=== PATIENT | female | born 1980 | race Caucasian/White ===

== ENCOUNTER 2020-05-11 23:09 | Emergency (ER) | payer OTHER, MEDICAID ==
[~2020-05-11] VITALS: Ht 182.9 cm; Wt 255.8 kg
[~2020-05-11 23:09] MED LIST: ADULT LOW DOSE81 MG PO; BYETTA PEN 11 PENINJ SC; CERTAGEN SOL1 BO1 NG; CYMBALTA60 MG PO; FISH OIL 1,0001 EAC5 PO; GEODON40 MG PO; GEODON60 MG PO; HYDROXYZINE HCL25 M1 PO; IMODIUM A-D1 MG/5 ML PO; MAALOX525 MG/15 PO; METFORMIN 500500 MG PO; MIDRIN CAPSULE1 CAP PO; NOVOLOG100 UNIT/1 SQ; SENNA CONCENTR8.6 MG PO; SIMVASTATIN20 MG PO; SINGULAIR 10 MG10 M1 PO; TOPAMAX100 MG PO; TRILEPTAL 300300 MG PO; VISTARIL 25 MG25 M1 PO; ZANTAC 150MG T150 M1 PO
[2020-05-11] MEDS ORDERED: ADVAIR 250-501 EACH INH (23:17)
[2020-05-11] MEDS ORDERED: BUSPIRONE HCL15 MG PO (23:18)
[2020-05-11] MEDS ORDERED: LANTUS100 UNIT/M SUBQ (23:18)
[2020-05-11] MEDS ORDERED: PRAZOSIN HCL5 MG PO (23:18)
[2020-05-11] MEDS ORDERED: GABAPENTIN600 M1 PO (23:19)
[2020-05-11] MEDS ORDERED: PROTONIX40 M2 PO (23:19)
[2020-05-11] MEDS ORDERED: TRULICITY4.5 MG/0.5 SUBQ (23:19)
[2020-05-11] MEDS ORDERED: KAPSPARGO SPRIN25 MG PO (23:20)
[2020-05-11] MEDS ORDERED: LATUDA80 MG PO (23:22)
[2020-05-12 00:12] VITALS: BP 158/72
== END 2020-05-12 00:12 | disposition home or self-care (01) ==
LOC: M.ERS 23:09
DX: S42.292A Other displaced fracture of upper end of left humerus, initial encounter for closed fracture (principal); E11.9 Type 2 diabetes mellitus without complications; J45.909 Unspecified asthma, uncomplicated; E66.9 Obesity, unspecified; Z68.45 Body mass index [BMI] 70 or greater, adult; Z87.440 Personal history of urinary (tract) infections; Z90.49 Acquired absence of other specified parts of digestive tract; Z79.4 Long term (current) use of insulin; Z88.1 Allergy status to other antibiotic agents; Z88.0 Allergy status to penicillin; Z88.5 Allergy status to narcotic agent; Z88.8 Allergy status to other drugs, medicaments and biological substances; W01.0XXA Fall on same level from slipping, tripping and stumbling without subsequent striking against object, initial encounter; Y93.89 Activity, other specified; Y92.89 Other specified places as the place of occurrence of the external cause; Y99.8 Other external cause status